=== PATIENT | female | born 1955 | race Caucasian/White ===

== ENCOUNTER 2016-10-13 13:16 | Inpatient (IN) ==
--- NOTE | 2016-10-13 15:43 | Internal Med History&Physical ---
Date of Encounter: 10/13/16 Time of Encounter: 15:39 Assessment and Plan (1) Dyspnea Current visit: No Status: Acute better now, CTA is negative for PE. CTA chest shows a small left effusion and left lower lobe atelectasis with redemonstration of metastatic disease to lungs, liver and bone. no signs of pneemonia. currently sating at 91% on 4 l of o2, will continue o2 via nasal cannula. will give gentle hydration as she looks very dehydrated. Qualifiers: Dyspnea type: unspecified Qualified Code(s): R06.00 - Dyspnea, unspecified (2) Endometrial carcinoma Current visit: No Status: Acute follows with DR. Lobato. scheduled for next round of chemotherapy tomm. will consult onco for further evaluation and management. family requesting palliative, code status undetermined at this time. (3) Anemia of chronic disease Current visit: Yes Status: Acute most likely in the setting of cancer adn chemotherapy. she has received multiple blood transfusions in the past, currnetly hgb at 7.5, will continue to monitor. blood transfusion prn (4) Elevated troponin Current visit: Yes Status: Acute denies chest pain, no EKG changes. possible demand ischemia in the setting of hypoxia and sob. less likely ACS. Internal Medicine - H&P: HPI Chief complaint: sob Admitted From: Intrahospital Transfer Plans for Post Hospital Care: Home History of present illness: Ms. Cordova is a 61 year old female with PMH of endometrial cancer with mets to the bone was transferred from [place] ED after feeling short of breath this morning. She follows with Dr. Lobato and She has been undergoing chemotherapy and has had 3 previous treatments that she says she gets every 3 weeks. She is due to have a chemotherapy session tomorrow at [facility]. She says that she woke this morning and felt more short of breath than usual. She says that she really does not do any activity except sit in bed and she became short of breath while she was lying in bed. She denies any cough, chest pain, fever, nausea or vomiting. She denies any increase in pain, but generally aches all over. CTA was done at [facility] which was negative for PE. she feels better now and the sob is better. Past Med Surg Social Fam HX - Past Medical History Medical history: cancer Psychiatric history: no psych history - Past Surgical History Surgical History: no surgical history - Social History Smoking Status: Current every day smoker Smokeless Tobacco Status: No Alcohol use: none Drug use: none Internal Medicine - H&P: Meds Ondansetron [Zofran] 4 mg PO Q8HR PRN #90 tablet 11/12/15 [Rx] Polyethylene Glycol 3350 [MiraLAX] 17 gm PO DAILY #1 unit 11/20/15 [Rx] Morphine Sulfate SR (12 HR) [MS Contin] 30 mg PO Q12HR #60 tablet.er 08/26/16 [ Rx] Cyclobenzaprine [Flexeril] 10 mg PO HS #15 tablet 09/23/16 [Rx] Ferrous Sulfate 325 mg PO DAILY #30 tablet 09/23/16 [Rx] Dexamethasone [Decadron] 1 mg PO Q48H 10/13/16 [History] Dexamethasone [Decadron] 4 mg PO AD 10/13/16 [History] Magic Mouthwash [Magic Mouthwash BLM] 10 ml PO TID PRN 10/13/16 [History] Oxycodone HCl 15 mg PO Q6H PRN 10/13/16 [History] Prochlorperazine Maleate [Compazine] 10 mg PO Q8HR PRN 10/13/16 [History] Allergies No Known Allergies Allergy (Verified 09/23/16 11:26) All Systems PM: A 10-system review of systems was performed and is negative for pertinent findings except as documented above in the HPI. - Constitutional Constitutional: as per HPI - EENT Eyes: as per HPI Ears: as per HPI Nose, mouth and throat: as per HPI - Breasts Breasts: as per HPI - Cardiovascular Cardiovascular ROS IM: as per HPI - Respiratory Respiratory: as per HPI - Gastrointestinal Gastrointestinal: as per HPI - Genitourinary Genitourinary: as per HPI - Constitutional Vitals: Pulse Resp BP Pulse Ox 119 17 104/76 91 10/13/16 15:27 10/13/16 15:27 10/13/16 15:27 10/13/16 15:27 General appearance: Present: A&O X 3, pleasant, no acute distress Exam: cachectic neck- supple chest- b/l clear, no added sounds CVS-s1 and s2, nomr//g abd-soft, non tender, bs are present ext- no edema neuro- no focal deficits.
[2016-10-13] MEDS ORDERED: Naloxone 0.4 MG/ML INJ IVP PRN (15:55)
[2016-10-13] MEDS ORDERED: Magic Mouthwash 10 ML UD Cup PO PRN (15:56)
[2016-10-13] MEDS ORDERED: Ondansetron ODT 4 MG TAB.RAPDIS PO PRN (15:56)
[2016-10-13] MEDS ORDERED: Albuterol 2.5 MG/3 ML NEBULIZER IH PRN (15:57)
[2016-10-13] MEDS: 0.9 % Sodium Chloride 1,000 ML IVC SCH (17:03)
[2016-10-13] MEDS: *HR* OxyCODONE Immed Rel 5 MG TABLET PO SCH (17:03)
[2016-10-13] MEDS: *HR* Morphine Sulfate SR (12 HR) 30 MG TABLET.ER PO SCH (22:00)
[2016-10-14] MEDS: *HR* OxyCODONE Immed Rel 5 MG TABLET PO SCH ×4 (03:56→10:32)
[2016-10-14 06:00] LABS: Basophils % 0.2 %; Eosinophils % 0.9 %; Hematocrit 20.7 % (35.3-44.9); Hemoglobin 6.4 g/dL (11.5-15.4); Immature Granulocytes % 1.4 % (0-4); Lymphocytes # 0.8 K/mcL (0.6-4.6); Lymphocytes % 19.3 %; Mean Corpuscular HGB Conc 30.9 g/dL (31.6-35.5); Mean Corpuscular Hemoglobin 26.6 pg (28.0-33.3); Mean Corpuscular Volume 85.9 fL (83.0-100.0); Mean Platelet Volume 9.3 fL (9.4-12.4); Monocytes # 0.3 K/mcL (0.0-1.3); Monocytes % 7.3 %; Nucleated Red Blood Cells 0.5 /100 WBC (0); Platelet Count 178 K/mcL (140-400); Red Blood Count 2.41 M/mcL (3.82-4.97); Red Cell Distribution Width 17.9 % (11.5-14.5); Segmented Neutrophils % 70.9 %
[2016-10-14] MEDS ORDERED: *HR* Enoxaparin 30 MG/0.3 ML SYRINGE SQ SCH (06:00)
[2016-10-14 06:16] LABS: BUN/Creatinine Ratio 12 (6-26); Blood Urea Nitrogen 6 mg/dL (7-20); Calcium 7.3 mg/dL (8.6-10.8); Carbon Dioxide 24 mEq/L (19-29); Chloride 101 mEq/L (98-109); Glucose 88 mg/dL (70-99); Osmolality,Calculated 277 (280-300); Potassium 2.7 mEq/L (3.5-4.5); Sodium 135 mEq/L (136-145); eGFR For African Americans > 60 (> 60); eGFR For Non-African Americans > 60 (> 60)
[2016-10-14] MEDS: 0.9 % Sodium Chloride 1,000 ML IVC SCH (06:26)
--- NOTE | 2016-10-14 08:57 | Oncology Inp Consult Note ---
Date of Encounter: 10/14/16 Time of Encounter: 18:00 Assessment and Plan (1) Endometrial carcinoma Status: Acute Assessment and plan: Stage IV, progressive, fibular systemic therapy status post treatment with carboplatin and Taxol, Doxil, Avastin-September 2016, declining performance status and failure to thrive. Generalized weakness likely secondary to poor intake, electrolyte abnormalities, profound anemia is evidence for bleeding. Transfuse for symptomatic relief, stool testing to rule out any bleeding. Replace electrolytes. SOB multifactorial anemia, deconditioning, no PE in imaging. S/P RT left femur and [id number] palliation. Motor strength is all 4 ext, since hopsitalization and pain under control. She is willing to consider palliative care option and possibly hospice if she does not improve clinically. DEtailed discussion was held with patient, daughter, mother bedside. Palliative care team to evaluate patient today. - Data of Consult Requesting Physician: Ladonna Brown MD Primary Care Provider: PCP NONE - Consult Narrative Reason for consult: uterine cancer metastatic History of present illness: HPI 61-year-old female with medical history significant for uterine ca, she was further evaluated at [facility] for neoplasm. CT imaging and biopsy of the endometrial mass which was consistent with endometrial adenocarcinoma. A total abdominal hysterectomy and salpingo- oophorectomy was planned but based on CT imaging of the chest abdomen and pelvis metastatic disease, she was w/u with MRI pelvis and PET scan. MRI pelvis showed uterus replaced by a large malignant mass with full-thickness myometrial invasion skeletal metastatic disease was also noted in the MRI. PET imaging showed markedly increased uptake involving the enlarged heterogeneous uterus, retroperitoneal and pelvic lymphadenopathy hypermetabolic areas. Osseous metastatic disease involving axial, proximal appendicular skeleton lytic lesion in the right skull base, spine and ribs sternum, lesion measuring 4 x 4.2 cm in the proximal left femur with SUV score of 16.4 increased uptake involving the L2 vertebral body with SUV score of 19 proximal right humerus with SUV score of 9.1. She started carbotaxol q 3wkly tolerated well, 11/19 through 03/22, s/p RT left femur lesion 11/13/15 on 800Gy, had imaging after 3 cycles at [facility] that indicated good response per Dr Perez's notes. She completed 6 cycles of chemotherapy and had a CT imaging in May 2016 and follow-up with her side panel padder. CT scan from 05/10/2016 showed new multiple lung nodules ranging in size from 3- 5 mm. The lesions measuring 8 mm or so. Multiple skeletal metastatic disease. Left posterior iliac wing lesion measured 3.5-1.4 and the L2 lesion measured 2.7 x 1.8 cm increased from 2.1 x 1.5 cm. Pelvic examination showed no pelvic masses the previous large mass seen prior to chemotherapy seem to have resolved. She also had bone bx that showed metastatic carcinoma. She was started doxil 06/20 C1 , continued until 08/20 Ct 09/19--no liver lesions, increase in previously noted liver lesion, increase in size of pelvic masses, increase in pulmonary nodules, increased skeletal metastatic disease. Treatment switched to Avastin 09/23/16 C1. She is hospitalized with the failure to thrive, profound weakness and declining performance status, shortness of breath that was worse, 2 days prior and poor intake. Unable to ambulate well due to gen wkness. Today she is not in lot of pain. She ate relatively more for meals, feels little stronger. She wants to discuss palliative care options as chemotherapy has made her weak. She had a CTA that did not show PE. Labs signifiacnt for anemia, hypokalemia Past Med Surg Social Fam HX - Past Medical History Medical history: cancer Psychiatric history: no psych history - Past Surgical History Surgical History: no surgical history - Social History Smoking Status: Current every day smoker Smokeless Tobacco Status: No Alcohol use: none Drug use: none - Family History Father Hx Family Cancer: Yes Mother Hx Family Cancer: Yes Medications and Allergies Ondansetron [Zofran] 4 mg PO Q8HR PRN #90 tablet 11/12/15 [Rx] Polyethylene Glycol 3350 [MiraLAX] 17 gm PO DAILY #1 unit 11/20/15 [Rx] Morphine Sulfate SR (12 HR) [MS Contin] 30 mg PO Q12HR #60 tablet.er 08/26/16 [ Rx] Cyclobenzaprine [Flexeril] 10 mg PO HS #15 tablet 09/23/16 [Rx] Ferrous Sulfate 325 mg PO DAILY #30 tablet 09/23/16 [Rx] Dexamethasone [Decadron] 1 mg PO Q48H 10/13/16 [History] Dexamethasone [Decadron] 4 mg PO AD 10/13/16 [History] Magic Mouthwash [Magic Mouthwash BLM] 10 ml PO TID PRN 10/13/16 [History] Oxycodone HCl 15 mg PO Q6H PRN 10/13/16 [History] Prochlorperazine Maleate [Compazine] 10 mg PO Q8HR PRN 10/13/16 [History] Allergies No Known Allergies Allergy (Verified 09/23/16 11:26) Review of systems: as in HPI Oncology - Exam - Constitutional Vitals: Temp Pulse Resp BP Pulse Ox 98.4 F 106 15 100/85 96 10/14/16 05:30 10/14/16 05:30 10/14/16 05:30 10/14/16 05:30 10/14/16 05:30 General appearance: disheveled, thin - Head Head exam: Present: atraumatic - Eye Eye exam: Present: sclera anicteric - ENT ENT exam: Present: mucous membranes dry - Neck Neck exam: Present: full ROM - Respiratory Respiratory exam: Present: CTAB - Cardiovascular Cardiovascular exam: Present: +S1, +S2 - GI/Abdominal GI/Abdominal exam: Present: soft Additional comments: non tender, no masses palpated - Extremities Exam Additional comments: no pedal edema or tenderness in the calf - Neurological Exam Neurological exam: Present: alert, oriented X3, strengths equal and symetr throughout - Psychiatric Psychiatric exam: Present: normal affect - Skin Skin exam: Present: dry Oncology - Results - Labs Labs: Short CBC 10/14/16 Range/Units 04:36 WBC 4.3 (4.3-11.1) K/mcL Hgb 6.4 L (11.5-15.4) g/dL Hct 20.7 L (35.3-44.9) % Plt Count 178 (140-400) K/mcL Neutrophils # 3.0 (1.6-8.9) K/mcL BMP 10/14/16 04:36 Sodium 135 L Potassium 2.7 L Chloride 101 Carbon Dioxide 24 BUN 6 L Creatinine 0.52 L Glucose 88 Calcium 7.3 L Consult Discharge Plan - Plan Referrals: NONE,PCP [Primary Care Provider] -
[2016-10-14] MEDS: *HR* Morphine Sulfate SR (12 HR) 30 MG TABLET.ER PO SCH ×2 (09:08→11:38)
[2016-10-14] MEDS ORDERED: Neosporin OINT 1 APPL PACKET TP ONE (09:20)
[2016-10-14] MEDS ORDERED: *HR* OxyCODONE Immed Rel 5 MG TABLET PO PRN (11:38)
[2016-10-14] MEDS: Potassium Chloride Elixir 20 MEQ/15 ML UDC PO SCH ×2 (11:38→16:56)
--- NOTE | 2016-10-14 11:39 | Palliative - Consult Note ---
Date of Encounter: 10/14/16 Time of Encounter: 11:30 - Assessment and Plan (1) Cancer associated pain Current Visit: Yes Status: Acute Assessment and plan: Continue MS Contin and Oxycodone for breakthrough pain. Monitor. (2) Decreased appetite Current Visit: No Status: Acute Assessment and plan: Begin Decadron 4mg bid. Patient and state her dose at home was confusing to them,, and they were not sure what she should be taking. Will order 4mg daily (3) Counseling regarding advanced care planning and goals of care Current Visit: Yes Status: Acute Assessment and plan: Discussed clinical status, progression of disease and goals of care. Patient states Dr. Roberto was very honest regarding where her disease is, and pt not tolerating current treatment. Patient would like to go home with hospice care today if possible. Discussed code status and she transitioned to DNRCC. Referral called to [facility], they will enroll pt later today at home. They state they will cover cost of ambulance transport home. State DNR form completed. D/W Dr. Mcfarland (4) Endometrial ca Current Visit: No Status: Chronic Palliative-CN HPI - Data of Consult Consult date: 10/14/16 Requesting Physician: Ladonna Brown MD Primary Care Provider: PCP NONE - Consult Narrative History of present illness: Ms. Cordova is a 61 year old female with a history of metastatic endometrial cancer with bone, lung, and liver metastasis, who present with increasing weakness and shortness of breath. She has been undergoing 3rd line chemotherapy for her disease and tolerating poorly, with decreasing performance status and decreasing appetite. Her shortness of breath at this time has improved. She is quite anemic, and will be receiving blood today which may help her dyspnea and weakness. She had chemo 3 weeks ago, and was actually scheduled for more today. Upon my visit, she is alert, oriented and pleasant. , daughter, and mother at bedside. C/o pain lower back and coccyx area. States she can no longer tolerate chemotherapy. Appetite has been poor, has been attempting to drink supplements. Intermittent nausea is helped by her home medications. CC: Ladonna Brown MD Past Med Surg Social Fam HX - Past Medical History Medical history: cancer Psychiatric history: no psych history - Past Surgical History Surgical History: no surgical history - Social History Smoking Status: Current every day smoker Smokeless Tobacco Status: No Alcohol use: none Drug use: none - Family History Father Hx Family Cancer: Yes Mother Hx Family Cancer: Yes Medications and Allergies Ondansetron [Zofran] 4 mg PO Q8HR PRN #90 tablet 11/12/15 [Rx] Polyethylene Glycol 3350 [MiraLAX] 17 gm PO DAILY #1 unit 11/20/15 [Rx] Cyclobenzaprine [Flexeril] 10 mg PO HS #15 tablet 09/23/16 [Rx] Ferrous Sulfate 325 mg PO DAILY #30 tablet 09/23/16 [Rx] Dexamethasone [Decadron] 1 mg PO Q48H 10/13/16 [History] Dexamethasone [Decadron] 4 mg PO AD 10/13/16 [History] Magic Mouthwash [Magic Mouthwash BLM] 10 ml PO TID PRN 10/13/16 [History] Oxycodone HCl 15 mg PO Q6H PRN 10/13/16 [History] Prochlorperazine Maleate [Compazine] 10 mg PO Q8HR PRN 10/13/16 [History] Allergies No Known Allergies Allergy (Verified 09/23/16 11:26) All systems: reviewed and no additional remarkable complaints except as stated ( Weakness, nausea, back pain, decreased appetite, sore mouth) Palliative Care-Exam - Constitutional Vitals: Temp Pulse Resp BP Pulse Ox 98.4 F 106 15 100/85 96 10/14/16 05:30 10/14/16 05:30 10/14/16 05:30 10/14/16 05:30 10/14/16 05:30 General appearance: Present: thin - Head Head Exam: Present: normal inspection, normocephalic - Eye Eye exam: Present: normal appearance, PERRL - Respiratory Respiratory exam: Present: decreased breath sounds, CTAB - Cardiovascular Cardiovascular exam: Present: +S1, +S2, tachycardia - GI/Abdominal Exam GI/Abdominal exam: Present: normal bowel sounds, soft - Extremities Exam Extremities exam: Present: normal capillary refill, normal inspection - Neurological Exam Neurological exam: Present: alert, oriented X3, strengths equal and symetr throughout Additional comments: Generalized weakness - Skin Skin exam: Present: dry, pallor, warm Internal Medicine - CN: Reslt - Labs CBC & Chem 7: 10/14/16 04:36 10/14/16 04:36 Labs: Short CBC 10/14/16 Range/Units 04:36 WBC 4.3 (4.3-11.1) K/mcL Hgb 6.4 L (11.5-15.4) g/dL Hct 20.7 L (35.3-44.9) % Plt Count 178 (140-400) K/mcL Neutrophils # 3.0 (1.6-8.9) K/mcL BMP 10/14/16 04:36 Sodium 135 L Potassium 2.7 L Chloride 101 Carbon Dioxide 24 BUN 6 L Creatinine 0.52 L Glucose 88 Calcium 7.3 L Consult Discharge Plan - Plan Referrals: NONE,PCP [Primary Care Provider] - Palliative Quality Palliative Quality: Screen for Code Status: Yes, Screen for Goals of Care: Yes, Screen for Pain: Yes, If Pain Regimen Started, Initiate Bowel Regimen: Yes, Screen for Nausea/Vomitting: Yes Code Status: 10/13/16 15:55 Resuscitation Status: Active [RES] Routine Comment: Resuscitation Status: Full Code
[2016-10-14] MEDS ORDERED: 0.9 % Sodium Chloride 250 ML ONE (13:56)
--- NOTE | 2016-10-14 14:09 | Discharge Summary ---
Date of Encounter: 10/14/16 Time of Encounter: 12:00 - Discharge Diagnosis (1) Dyspnea Priority: Primary Status: Acute Qualifiers: Dyspnea type: unspecified Qualified Code(s): R06.00 - Dyspnea, unspecified (2) Decreased appetite Priority: Secondary Status: Chronic (3) Endometrial carcinoma Priority: Secondary Status: Chronic (4) Metastasis Priority: Secondary Status: Chronic Qualifiers: Area of secondary neoplastic involvement: bone Qualified Code(s): C79.51 - Secondary malignant neoplasm of bone (5) Cancer associated pain Priority: Secondary Status: Chronic - Discharge Medications Prescriptions: OxyCODONE Immed Rel [Roxicodone 5 MG] 10 mg PO Q4HR PRN #24 tablet PRN Reason: Breakthrough Pain Morphine Sulfate SR (12 HR) [MS Contin] 1 tab PO Q12HR #8 tab Dexamethasone [Decadron] 4 mg PO DAILY #4 tab Magic Mouthwash [Magic Mouthwash BLM] 10 ml PO TID #120 ml Home Medications: Ondansetron [Zofran] 4 mg PO Q8HR PRN #90 tablet 11/12/15 [Rx] Polyethylene Glycol 3350 [MiraLAX] 17 gm PO DAILY #1 unit 11/20/15 [Rx] Cyclobenzaprine [Flexeril] 10 mg PO HS #15 tablet 09/23/16 [Rx] Ferrous Sulfate 325 mg PO DAILY #30 tablet 09/23/16 [Rx] Dexamethasone [Decadron] 1 mg PO Q48H 10/13/16 [History] Dexamethasone [Decadron] 4 mg PO AD 10/13/16 [History] Magic Mouthwash [Magic Mouthwash BLM] 10 ml PO TID PRN 10/13/16 [History] Oxycodone HCl 15 mg PO Q6H PRN 10/13/16 [History] Prochlorperazine Maleate [Compazine] 10 mg PO Q8HR PRN 10/13/16 [History] Dexamethasone [Decadron] 4 mg PO DAILY #4 tab 10/14/16 [Rx] Magic Mouthwash [Magic Mouthwash BLM] 10 ml PO TID #120 ml 10/14/16 [Rx] Morphine Sulfate SR (12 HR) [MS Contin] 1 tab PO Q12HR #8 tab 10/14/16 [Rx] OxyCODONE Immed Rel [Roxicodone 5 MG] 10 mg PO Q4HR PRN #24 tablet 10/14/16 [Rx] Allergies/Adverse Reactions: Allergies No Known Allergies Allergy (Verified 09/23/16 11:26) Date of admission: 10/13/16 15:55 Primary care physician: PCP NONE Consults: 10/13/16 16:12 Consult to Palliative Care [CONS] Routine Comment: Consulting Provider: Palliative Care Margarita Reason for Consult: please evaluate this patient with metastatic endometrial cancer for hospice care. thank you Call Completed: Yes 10/13/16 16:17 Consult to Oncology Hematology [CONS] Routine Consulting Provider: Adam Cedillo Reason for Consult: patinet with metastatic endometrial cancer scheduled for chemotherapy tomm Call Completed: Yes Discharging clinician: Ladonna Brown Anticipated date of discharge: 10/14/16 - Patient Status Disposition: Hospice - Home Condition: Critical Functional capacity at discharge: bed bound Overall status at discharge: patient is not back to baseline - Discharge Instructions Instructions: Oxycodone/Acetaminophen (By mouth), Morphine, Rapid Release (By mouth), Dexamethasone (By mouth), Iron Rich Diet (DC) Follow Up With: NONE,PCP [Primary Care Provider] - Additional Instructions: F/up with PCP in 1-2 weeks - Diet and Activity Activity: resume usual activities as tolerated Diet: advance to your usual diet Hospital course: Ms. Cordova is a 61 year old female with h/o- metastatic endometrial cancer, who was admitted with c/o- dyspnea. CTA chest done in the ER showed left sided effusion and atelectasis along with metastatic disease to lungs, liver and bones , no PE. PAtient improved with supportive care and did not require supplemental O2 at discharge. patient and family opted for Palliative care/Hospice services at home. Oncology and Palliative care team were consulted and were in agreement. She was noted to have acute on chronic anemia with Hb<6 and received 1unit PRBC transfusion. SHe is now being discharged to Home Hospice care in stable condition. Her code status has been changed to DNR-CC. - Time Spent with Patient Total time spent providing and/or coordinating discharge services: Greater than 30 minutes (35 min) - Constitutional Vitals: Temp Pulse Resp BP Pulse Ox 97.8 F 115 16 103/72 94 10/14/16 14:01 10/14/16 14:01 10/14/16 14:01 10/14/16 14:01 10/14/16 14:01 General appearance: Present: cachectic, A&O X 3, answers questions appropriately - Cardiovascular Cardiovascular exam: Present: RRR, +S1, +S2, tachycardia. Absent: diastolic murmur, gallop, rubs, systolic murmur
--- NOTE | 2016-10-14 14:12 | Physician Discharge Referral ---
Home Health/Hosp Referral Info Transfer to: Hospice Attending Provider: Ladonna Brown Provider in Charge Post Discharge: PCP - Diagnosis (1) Dyspnea Priority: Primary Status: Acute (2) Decreased appetite Priority: Secondary Status: Chronic (3) Endometrial carcinoma Priority: Secondary Status: Chronic (4) Metastasis Priority: Secondary Status: Chronic (5) Cancer associated pain Priority: Secondary Status: Chronic - Respiratory Orders Smoking Cessation: Smoking cessation has been advised. For more information, call the [place] Tobacco Quit Line at 7-940-QEDM-NOW. - Diet/Nutrition Diet/Nutrition Orders: Regular - Activity Activity Orders: Ambulate - Services Needed Following services are medically necessary services: Nursing - Transfer Medications Prescriptions: OxyCODONE Immed Rel [Roxicodone 5 MG] 10 mg PO Q4HR PRN #24 tablet PRN Reason: Breakthrough Pain Morphine Sulfate SR (12 HR) [MS Contin] 1 tab PO Q12HR #8 tab Dexamethasone [Decadron] 4 mg PO DAILY #4 tab Magic Mouthwash [Magic Mouthwash BLM] 10 ml PO TID #120 ml Home Medications: Ondansetron [Zofran] 4 mg PO Q8HR PRN #90 tablet 11/12/15 [Rx] Polyethylene Glycol 3350 [MiraLAX] 17 gm PO DAILY #1 unit 11/20/15 [Rx] Cyclobenzaprine [Flexeril] 10 mg PO HS #15 tablet 09/23/16 [Rx] Ferrous Sulfate 325 mg PO DAILY #30 tablet 09/23/16 [Rx] Dexamethasone [Decadron] 1 mg PO Q48H 10/13/16 [History] Dexamethasone [Decadron] 4 mg PO AD 10/13/16 [History] Magic Mouthwash [Magic Mouthwash BLM] 10 ml PO TID PRN 10/13/16 [History] Oxycodone HCl 15 mg PO Q6H PRN 10/13/16 [History] Prochlorperazine Maleate [Compazine] 10 mg PO Q8HR PRN 10/13/16 [History] Dexamethasone [Decadron] 4 mg PO DAILY #4 tab 10/14/16 [Rx] Magic Mouthwash [Magic Mouthwash BLM] 10 ml PO TID #120 ml 10/14/16 [Rx] Morphine Sulfate SR (12 HR) [MS Contin] 1 tab PO Q12HR #8 tab 10/14/16 [Rx] OxyCODONE Immed Rel [Roxicodone 5 MG] 10 mg PO Q4HR PRN #24 tablet 10/14/16 [Rx] Allergies/Adverse Reactions: Allergies No Known Allergies Allergy (Verified 09/23/16 11:26) Certification: Further, I certify that my clinical findings support that this patient is homebound (i.e. absences from home require considerable and taxing effort and are for medical reasons or judaism services or infrequently or short duration when for other reasons) because: Homebound Reason: Patient requires assistance of a person or device to safely leave home, Leaving home requires considerable and taxing effort due to condition Attestation: My signature below is to certify that this patient is under my care and that I, or nurse practitioner, or a physician's expanded duty dental assistant working with me, has a face-to -face encounter with this patient.
[2016-10-14 16:35] VITALS: BP 95/71
== END 2016-10-14 17:27 | disposition hospice, home (50) | DRG 181 ==
LOC: 2NENU
PROVIDERS: ADMIT Internal Medicine Endocrinology, Diabetes & Metabolism; ATTEND Internal Medicine